=== PATIENT | female | born 1985 | race Caucasian/White ===

== ENCOUNTER 2018-09-03 22:52 | Emergency (ER) | payer SELFPAY ==
[~2018-09-03] VITALS: Ht 170.2 cm; Wt 130.0 kg
[2018-09-03 22:56] VITALS: BP 140/92
[2018-09-03] MEDS ORDERED: DIPH50 PO (23:06)
[2018-09-03] MEDS ORDERED: PALI39DI IM (23:06)
[2018-09-03] MEDS ORDERED: PROP10TA73 PO (23:06)
== END 2018-09-03 23:30 | disposition left against medical advice (07) ==
LOC: EMS 22:53
DX: F41.9 Anxiety disorder, unspecified (principal); Z53.21 Procedure and treatment not carried out due to patient leaving prior to being seen by health care provider

== ENCOUNTER 2018-10-18 10:43 | Emergency (ER) | payer SELFPAY ==
[~2018-10-18] VITALS: Ht 172.7 cm; Wt 113.6 kg
[~2018-10-18 10:43] MED LIST: DIPH50 PO; PALI39DI IM; PROP10TA73 PO
[2018-10-18 11:40] LABS: BASOPHILS % (AUTO) 0.9 % (0.0-2.0); EOSINOPHILS % (AUTO) 1.7 % (1.0-6.0); HEMATOCRIT 36.1 % (36-46); LYMPHOCYTES # (AUTO) 2.1 K/uL (1.0-4.8); LYMPHOCYTES % (AUTO) 17.3 % (22.0-44.0); MEAN CORPUSCULAR HEMOGLOBIN 30.4 pg (26.0-34.0); MEAN CORPUSCULAR HGB CONC 33.2 G/dL (31.0-37.0); MEAN CORPUSCULAR VOLUME 91 fL (80-100); MONOCYTES # (AUTO) 0.6 K/uL (0.1-1.0); MONOCYTES % (AUTO) 4.9 % (2.0-9.0); NEUTROPHILS # (AUTO) 8.9 K/uL (1.8-7.7); NEUTROPHILS % (AUTO) 75.2 % (40.0-70.0); PLATELET COUNT (AUTO) 328 K/uL (150-450); RED BLOOD CELL COUNT(AUTO) 3.95 MIL/uL (4.00-5.20); RED CELL DISTRIBUTION WIDTH 14.3 % (11.5-14.5)
[2018-10-18 11:57] LABS: ANION GAP 8 mmol/L (8-16); CALCIUM, TOTAL 8.5 mg/dL (8.8-10.5); CARBON DIOXIDE 25 mmol/L (22-29); CHLORIDE 106 mmol/L (98-107); CREATININE 0.82 mg/dL (0.60-1.30); GLOMERULAR FILTR. RATE CALC > 60 mL/min (>60); GLUCOSE,RANDOM 76 mg/dL (70-110); POTASSIUM 4.1 mmol/L (3.5-5.1); SODIUM SERUM 139 mmol/L (136-145); UREA NITROGEN, BLOOD 11 mg/dL (7-18)
[2018-10-18 12:04] LABS: ALANINE AMINOTRANSFERASE 27 U/L (12-78); ALBUMIN 3.1 g/dL (3.4-5.0); ALKALINE PHOSPHATASE 57 U/L (46-116); ASPARTATE AMINOTRANSFERASE 14 U/L (15-37); BILIRUBIN,TOTAL 0.2 mg/dL (0.1-1.0); TOTAL PROTEIN, SERUM 6.9 g/dL (6.4-8.2)
[2018-10-18 13:15] LABS: APPEARANCE,URINE CLEAR (CLEAR); BILIRUBIN,URINE NEGATIVE (NEGATIVE); GLUCOSE, URINE (UA) NEGATIVE (NEGATIVE); KETONES,URINE NEGATIVE (NEGATIVE); LEUKOCYTE ESTERASE ,URINE NEGATIVE (NEGATIVE); NITRATE,URINE NEGATIVE (NEGATIVE); PH,URINE 5.5 (5.0-8.0); PROTEIN,URINE NEGATIVE (NEGATIVE); UROBILINOGEN,URINE 0.2 mg/dL (<=1.0)
[2018-10-18 13:20] LABS: AMPHET/METH SCREEN,URINE POSITIVE (NEGATIVE); BARBITURATE SCREEN, URINE NEGATIVE (NEGATIVE); BENZODIAZEPINES SCREEN,URINE NEGATIVE (NEGATIVE); CANNABINOID SCREEN,URINE NEGATIVE (NEGATIVE); COCAINE SCREEN,URINE NEGATIVE (NEGATIVE); METHADONE SCREEN, URINE NEGATIVE (NEGATIVE); OPIATE SCREEN,URINE NEGATIVE (NEGATIVE); PHENCYCLIDINE SCREEN,URINE NEGATIVE (NEGATIVE)
[2018-10-18 13:38] LABS: BACTERIA,URINE None Seen /HPF (None Seen); OCCULT BLOOD,URINE SMALL (NEGATIVE); SQUAMOUS EPITHELIAL CELL,UR Few /LPF (None Seen); WBC,URINE 0-2 /HPF (0-5)
[2018-10-18 15:19] VITALS: BP 110/69
== END 2018-10-18 15:31 | disposition home or self-care (01) ==
LOC: EMS 10:44
DX: G93.40 Encephalopathy, unspecified (principal); F12.90 Cannabis use, unspecified, uncomplicated; F15.90 Other stimulant use, unspecified, uncomplicated; F14.90 Cocaine use, unspecified, uncomplicated; F17.210 Nicotine dependence, cigarettes, uncomplicated; Z79.899 Other long term (current) drug therapy
CPT/HCPCS: 36415; 80053; 80307; 81001; 85025; 99283; G0480

== ENCOUNTER 2021-07-18 01:03 | Emergency (ER) | payer MEDICAID ==
[~2021-07-18] VITALS: Ht 175.3 cm; Wt 100.0 kg
[2021-07-18] MEDS ORDERED: KETOROLAC TROMETHAMINE 30 MG/ML VIAL IVP ONE (01:15)
[2021-07-18] MEDS ORDERED: SODIUM CHLORIDE 0.9% 1,000 ML IV ONE ×2 (01:15→08:15)
[2021-07-18] MEDS ORDERED: FAMOTIDINE 10 MG/ML 2 ML VIAL IVP ONE (01:15)
[2021-07-18] MEDS ORDERED: ONDANSETRON HCL 4 MG/2 ML VIAL IVP ONE (01:15)
[2021-07-18] MEDS ORDERED: IOHEXOL 350 MG/ML 100 ML VIAL ONE (01:18)
[2021-07-18] MEDS ORDERED: SODIUM CHLORIDE 0.9% 100 ML ONE (01:18)
[2021-07-18 02:14] LABS: COVID AG,FIA SOURCE NASOPHARYNGEAL
[2021-07-18 02:21] LABS: BASOPHILS % (AUTO) 0.1 % (0.0-2.0); EOSINOPHILS % (AUTO) 0.5 % (1.0-6.0); HEMATOCRIT 39.3 % (36-46); HEMOGLOBIN 13.3 g/dL (12.0-16.0); LYMPHOCYTES # (AUTO) 0.7 K/uL (1.0-4.8); LYMPHOCYTES % (AUTO) 3.3 % (22.0-44.0); MEAN CORPUSCULAR HEMOGLOBIN 31.3 pg (26.0-34.0); MEAN CORPUSCULAR HGB CONC 33.7 G/dL (31.0-37.0); MEAN CORPUSCULAR VOLUME 93 fL (80-100); MONOCYTES # (AUTO) 0.8 K/uL (0.1-1.0); MONOCYTES % (AUTO) 3.6 % (2.0-9.0); NEUTROPHILS # (AUTO) 19.3 K/uL (1.8-7.7); PLATELET COUNT (AUTO) 376 K/uL (150-450); RED BLOOD CELL COUNT(AUTO) 4.23 MIL/uL (4.00-5.20); RED CELL DISTRIBUTION WIDTH 14.7 % (11.5-14.5)
[2021-07-18 02:32] LABS: NEUTROPHILS % (AUTO) 92.5 % (40.0-70.0)
[2021-07-18 02:36] LABS: APPEARANCE,URINE CLEAR (CLEAR); BILIRUBIN,URINE NEGATIVE (NEGATIVE); GLUCOSE, URINE (UA) NEGATIVE (NEGATIVE); KETONES,URINE NEGATIVE (NEGATIVE); LEUKOCYTE ESTERASE ,URINE NEGATIVE (NEGATIVE); NITRATE,URINE NEGATIVE (NEGATIVE); OCCULT BLOOD,URINE NEGATIVE (NEGATIVE); PH,URINE 6.5 (5.0-8.0); PROTEIN,URINE NEGATIVE (NEGATIVE); SPECIFIC GRAVITIY, URINE 1.021 (1.003-1.030); UROBILINOGEN,URINE <=1.0 mg/dL (<=1.0)
[2021-07-18 02:41] LABS: LACTIC ACID 0.7 mmol/L (0.4-2.0)
[2021-07-18 02:48] LABS: ALANINE AMINOTRANSFERASE 37 U/L (12-78); ALBUMIN 3.4 g/dL (3.4-5.0); ALKALINE PHOSPHATASE 65 U/L (46-116); ASPARTATE AMINOTRANSFERASE 23 U/L (15-37); BILIRUBIN,TOTAL 0.4 mg/dL (0.1-1.0); CALCIUM, TOTAL 8.6 mg/dL (8.8-10.5); CHLORIDE 107 mmol/L (98-107); CREATININE 0.86 mg/dL (0.60-1.30); GLOMERULAR FILTR. RATE CALC > 60 mL/min (>60); GLUCOSE,RANDOM 111 mg/dL (70-110); HCG,QUANTITATIVE < 1 mIU/mL (0-6); LIPASE 217 U/L (73-393); POTASSIUM 3.8 mmol/L (3.5-5.1); SODIUM SERUM 141 mmol/L (136-145); TOTAL PROTEIN, SERUM 7.4 g/dL (6.4-8.2)
[2021-07-18 02:54] LABS: ANION GAP 12 mmol/L (8-16); CARBON DIOXIDE 22 mmol/L (22-29); UREA NITROGEN, BLOOD 17 mg/dL (7-18)
[2021-07-18 03:03] LABS: INFLUENZA TYPE A NEGATIVE FOR TYPE A (NEGATIVE); INFLUENZA TYPE B NEGATIVE FOR TYPE B (NEGATIVE)
[2021-07-18] MEDS ORDERED: IOHEXOL 350 MG/ML 150 ML VIAL ONE (03:03)
[2021-07-18] MEDS ORDERED: ONDA-104 PO (05:31)
[2021-07-18] MEDS ORDERED: FentaNYL CITRATE PF 100 MCG/2 ML VIAL IVP ONE (08:15)
[2021-07-18 08:55] VITALS: BP 140/80
== END 2021-07-18 11:02 | disposition home or self-care (01) ==
LOC: EMS 01:04
DX: R10.84 Generalized abdominal pain (principal); F12.90 Cannabis use, unspecified, uncomplicated; F15.90 Other stimulant use, unspecified, uncomplicated; F17.210 Nicotine dependence, cigarettes, uncomplicated; Z79.899 Other long term (current) drug therapy; Z20.822 Contact with and (suspected) exposure to COVID-19
CPT/HCPCS: 36415; 74177; 80053; 81003; 83605; 83690; 84702; 85025; 87426; 87804; 96361; 96374; 96375; 99285; G0480; J1885; J2405; J3010; J3490; J7030; J7050; Q9967

== ENCOUNTER 2021-12-03 16:49 | Inpatient (IN) | payer MEDICAID ==
[~2021-12-03] VITALS: Ht 170.2 cm; Wt 103.0 kg
[~2021-12-03 16:49] MED LIST changes: +ONDA-104 PO
[2021-12-03 17:27] LABS: BASOPHILS % (AUTO) 0.2 % (0.0-2.0); EOSINOPHILS % (AUTO) 1.5 % (1.0-6.0); HEMATOCRIT 37.3 % (36-46); HEMOGLOBIN 12.2 g/dL (12.0-16.0); LYMPHOCYTES % (AUTO) 15.8 % (22.0-44.0); MEAN CORPUSCULAR HEMOGLOBIN 28.6 pg (26.0-34.0); MEAN CORPUSCULAR HGB CONC 32.7 G/dL (31.0-37.0); MEAN CORPUSCULAR VOLUME 87 fL (80-100); MONOCYTES % (AUTO) 8.1 % (2.0-9.0); NEUTROPHILS # (AUTO) 9.5 K/uL (1.8-7.7); NEUTROPHILS % (AUTO) 74.4 % (40.0-70.0); PLATELET COUNT (AUTO) 367 K/uL (150-450); RED BLOOD CELL COUNT(AUTO) 4.27 MIL/uL (4.00-5.20); RED CELL DISTRIBUTION WIDTH 16.7 % (11.5-14.5)
[2021-12-03 17:37] LABS: ANION GAP 13 mmol/L (8-16); CALCIUM, TOTAL 8.7 mg/dL (8.8-10.5); CARBON DIOXIDE 22 mmol/L (22-29); CHLORIDE 101 mmol/L (98-107); CREATININE 0.92 mg/dL (0.60-1.30); GLUCOSE,RANDOM 101 mg/dL (70-110); POTASSIUM 4.2 mmol/L (3.5-5.1); SODIUM SERUM 136 mmol/L (136-145); UREA NITROGEN, BLOOD 13 mg/dL (7-18)
[2021-12-03] MEDS: LORazepam 1 MG TABLET PO ONE ×2 (17:39→19:12)
[2021-12-03] MEDS: HALOPERIDOL 5 MG TABLET PO ONE ×2 (17:39→19:12)
[2021-12-03 17:43] LABS: ALANINE AMINOTRANSFERASE 25 U/L (12-78); ALBUMIN 3.5 g/dL (3.4-5.0); ALKALINE PHOSPHATASE 64 U/L (46-116); ASPARTATE AMINOTRANSFERASE 19 U/L (15-37); BILIRUBIN,TOTAL 0.5 mg/dL (0.1-1.0)
[2021-12-03 17:44] LABS: GLOMERULAR FILTR. RATE CALC > 60 mL/min (>60)
[2021-12-03] MEDS ORDERED: HALOPERIDOL LACTATE 5 MG/ML VIAL IM ONE ×3 (18:00→23:15)
[2021-12-03] MEDS ORDERED: DIAZEPAM 5 MG/ML 2 ML SYRINGE IM ONE ×2 (18:00→19:45)
[2021-12-03] MEDS ORDERED: DiphenhydrAMINE HCL 50 MG/ML VIAL IM ONE (18:00)
[2021-12-03 19:54] LABS: COVID AG,FIA SOURCE NASOPHARYNGEAL
[2021-12-03] MEDS ORDERED: OLANZapine 5 MG RAPDIS TABLET PO PRN (20:30)
[2021-12-03] MEDS ORDERED: ZOLPIDEM TARTRATE 10 MG TABLET PO PRN (20:30)
[2021-12-03] MEDS ORDERED: LORazepam 2 MG TABLET PO PRN ×2 (20:30→22:15)
[2021-12-03] MEDS ORDERED: HALOPERIDOL 5 MG TABLET PO PRN (22:15)
[2021-12-03 22:22] LABS: HCG,QUANTITATIVE < 1 mIU/mL (0-6)
[2021-12-03] MEDS ORDERED: LORazepam 2 MG/ML VIAL IM ONE (23:15)
[2021-12-04 01:51] LABS: APPEARANCE,URINE CLEAR (CLEAR); BILIRUBIN,URINE NEGATIVE (NEGATIVE); GLUCOSE, URINE (UA) NEGATIVE (NEGATIVE); KETONES,URINE NEGATIVE (NEGATIVE); LEUKOCYTE ESTERASE ,URINE NEGATIVE (NEGATIVE); NITRATE,URINE NEGATIVE (NEGATIVE); OCCULT BLOOD,URINE NEGATIVE (NEGATIVE); PROTEIN,URINE NEGATIVE (NEGATIVE); SPECIFIC GRAVITIY, URINE 1.006 (1.003-1.030); UROBILINOGEN,URINE <=1.0 mg/dL (<=1.0)
[2021-12-04 01:57] LABS: AMPHET/METH SCREEN,URINE POSITIVE (NEGATIVE); BARBITURATE SCREEN, URINE NEGATIVE (NEGATIVE); BENZODIAZEPINES SCREEN,URINE NEGATIVE (NEGATIVE); CANNABINOID SCREEN,URINE POSITIVE (NEGATIVE); COCAINE SCREEN,URINE POSITIVE (NEGATIVE); METHADONE SCREEN, URINE NEGATIVE (NEGATIVE); OPIATE SCREEN,URINE NEGATIVE (NEGATIVE)
[2021-12-04 02:05] LABS: PHENCYCLIDINE SCREEN,URINE NEGATIVE (NEGATIVE)
[2021-12-04 08:11] VITALS: BP 157/94
[2021-12-04] MEDS ORDERED: LOPERAMIDE HCL 2 MG CAPSULE PO PRN (22:15)
[2021-12-04] MEDS ORDERED: CloNIDine HCL 0.1 MG TABLET PO PRN (22:15)
[2021-12-04] MEDS ORDERED: MAGNESIUM HYDROXIDE SUSPENSION 30 ML UDCUP PO PRN (22:15)
[2021-12-04] MEDS ORDERED: ONDANSETRON HCL 4 MG TABLET PO PRN (22:15)
[2021-12-04] MEDS ORDERED: BACITRACIN 28 GM OINTMENT TP PRN (22:15)
[2021-12-04] MEDS ORDERED: DOCUSATE SODIUM 100 MG CAPSULE PO PRN (22:15)
[2021-12-04] MEDS ORDERED: ACETAMINOPHEN 325 MG TABLET PO PRN (22:15)
[2021-12-04] MEDS ORDERED: ALBUTEROL SULFATE HFA 90 MCG/PUFF 8 GM INHALER IH PRN (22:15)
[2021-12-04] MEDS ORDERED: OMEPRAZOLE 20 MG CAPSULE PO PRN (22:15)
[2021-12-04] MEDS ORDERED: PETROLATUM,WHITE 28 GM JELLY TP PRN (22:15)
[2021-12-04] MEDS ORDERED: IBUPROFEN 600 MG TABLET PO PRN (22:15)
[2021-12-04] MEDS ORDERED: MAG HYDROX/AL HYDROX/SIMETH ES 30 ML SUSPENSION UDCUP PO PRN (22:15)
[2021-12-04] MEDS ORDERED: BENZOCAINE/MENTHOL LOZENGE PO PRN (22:15)
[2021-12-05] MEDS: ZOLPIDEM TARTRATE 10 MG TABLET PO PRN (02:41)
[2021-12-05] MEDS: OLANZapine 5 MG RAPDIS TABLET PO PRN (02:41)
[2021-12-05] MEDS: RisperiDONE 3 MG TABLET PO SCH ×2 (09:00→16:15)
[2021-12-05] MEDS ORDERED: LORazepam 2 MG/ML VIAL IM ONE (16:45)
[2021-12-05] MEDS ORDERED: HALOPERIDOL LACTATE 5 MG/ML VIAL IM ONE (16:45)
[2021-12-05] MEDS ORDERED: DiphenhydrAMINE HCL 50 MG/ML VIAL IM ONE (16:45)
[2021-12-05] MEDS: NICOTINE 21 MG/24 HOUR PATCH TD SCH (17:58)
[2021-12-05] MEDS: DIVALPROEX SODIUM 500 MG DR TABLET PO SCH (20:04)
[2021-12-06] MEDS: RisperiDONE 3 MG TABLET PO SCH ×2 (10:22→16:17)
[2021-12-06] MEDS: OLANZapine 5 MG RAPDIS TABLET PO PRN (10:22)
[2021-12-06] MEDS: DIVALPROEX SODIUM 500 MG DR TABLET PO SCH ×2 (10:23→20:32)
[2021-12-06] MEDS: NICOTINE 21 MG/24 HOUR PATCH TD SCH (10:23)
[2021-12-06] MEDS ORDERED: DiphenhydrAMINE HCL 50 MG/ML VIAL ONE (13:39)
[2021-12-06] MEDS ORDERED: LORazepam 2 MG/ML VIAL IM ONE (13:45)
[2021-12-06] MEDS ORDERED: HALOPERIDOL LACTATE 5 MG/ML VIAL IM ONE (13:45)
[2021-12-06] MEDS ORDERED: PERMETHRIN 5% 60 GM CREAM TP ONE (15:30)
[2021-12-06 16:07] VITALS: BP 134/88
[2021-12-07] MEDS: OLANZapine 5 MG RAPDIS TABLET PO PRN ×2 (08:43→16:27)
[2021-12-07] MEDS: DIVALPROEX SODIUM 500 MG DR TABLET PO SCH ×2 (08:43→20:16)
[2021-12-07] MEDS: RisperiDONE 3 MG TABLET PO SCH ×2 (08:43→16:27)
[2021-12-07] MEDS: NICOTINE 21 MG/24 HOUR PATCH TD SCH (10:15)
[2021-12-07 16:06] VITALS: BP 135/106
[2021-12-08 08:15] VITALS: BP 115/64
[2021-12-08] MEDS: RisperiDONE 3 MG TABLET PO SCH (10:18)
[2021-12-08] MEDS: NICOTINE 21 MG/24 HOUR PATCH TD SCH (10:18)
[2021-12-08] MEDS: DIVALPROEX SODIUM 500 MG DR TABLET PO SCH ×2 (10:18→20:17)
[2021-12-08] MEDS: OLANZapine 5 MG RAPDIS TABLET PO PRN ×2 (11:59→16:25)
[2021-12-08] MEDS ORDERED: PERMETHRIN 5% 60 GM CREAM TP ONE (12:00)
[2021-12-08 16:15] VITALS: BP 122/70
[2021-12-08] MEDS: RisperiDONE 4 MG TABLET PO SCH (16:23)
[2021-12-09 03:06] LABS: HIV 1-2 SCREEN 4TH GEN W/RFLX Non Reactive (Non Reactive)
[2021-12-09 06:44] LABS: COVID AG,FIA SOURCE NASAL SWAB
[2021-12-09] MEDS: RisperiDONE 4 MG TABLET PO SCH ×2 (10:15→16:08)
[2021-12-09] MEDS: OLANZapine 5 MG RAPDIS TABLET PO PRN ×2 (10:17→16:08)
[2021-12-09] MEDS: NICOTINE 21 MG/24 HOUR PATCH TD SCH (10:17)
[2021-12-09] MEDS: DIVALPROEX SODIUM 500 MG DR TABLET PO SCH ×2 (10:17→21:15)
[2021-12-09 16:10] VITALS: BP 107/72
[2021-12-09] MEDS: ZOLPIDEM TARTRATE 10 MG TABLET PO PRN (21:05)
[2021-12-10] MEDS: DIVALPROEX SODIUM 500 MG DR TABLET PO SCH ×2 (10:23→20:00)
[2021-12-10] MEDS: RisperiDONE 4 MG TABLET PO SCH ×2 (10:23→16:37)
[2021-12-10] MEDS: OLANZapine 5 MG RAPDIS TABLET PO PRN ×3 (10:23→18:37)
[2021-12-10] MEDS: NICOTINE 21 MG/24 HOUR PATCH TD SCH (10:24)
[2021-12-10 16:33] VITALS: BP 141/91
[2021-12-10] MEDS: ZOLPIDEM TARTRATE 10 MG TABLET PO PRN (20:01)
[2021-12-11] MEDS: NICOTINE 21 MG/24 HOUR PATCH TD SCH (09:00)
[2021-12-11] MEDS: OLANZapine 5 MG RAPDIS TABLET PO PRN (10:58)
[2021-12-11] MEDS: DIVALPROEX SODIUM 500 MG DR TABLET PO SCH (10:58)
[2021-12-11] MEDS: RisperiDONE 4 MG TABLET PO SCH (10:58)
[2021-12-11] MEDS ORDERED: DIVA-112 PO (11:12)
[2021-12-11] MEDS ORDERED: RISP4TAB73 PO (11:12)
== END 2021-12-11 14:35 | disposition home or self-care (01) | DRG 750 ==
LOC: EMS 16:55 → 3EC 22:14
PROVIDERS: ADMIT Psychiatry & Neurology Psychiatry; ATTEND Psychiatry & Neurology Psychiatry
DX: F25.9 Schizoaffective disorder, unspecified (principal); F15.10 Other stimulant abuse, uncomplicated; F41.9 Anxiety disorder, unspecified; G47.00 Insomnia, unspecified; I10 Essential (primary) hypertension; Z20.822 Contact with and (suspected) exposure to COVID-19; K59.00 Constipation, unspecified; Z71.51 Drug abuse counseling and surveillance of drug abuser; Z59.00 Homelessness unspecified; Z72.0 Tobacco use; Z71.6 Tobacco abuse counseling
CPT/HCPCS: 80053; 80307; 81003; 84702; 85025; 87081; 87389; 99291; G0480; J1200; J1630; J2060

== ENCOUNTER 2022-01-14 22:29 | Emergency (ER) | payer MEDICAID ==
[~2022-01-14 22:29] MED LIST changes: -DIPH50 PO; +DIVA-112 PO; -ONDA-104 PO; -PALI39DI IM; -PROP10TA73 PO; +RISP4TAB73 PO
== END 2022-01-14 23:01 | disposition left against medical advice (07) ==
LOC: EMS 22:30
DX: Z30.09 Encounter for other general counseling and advice on contraception (principal); Z53.21 Procedure and treatment not carried out due to patient leaving prior to being seen by health care provider